=== PATIENT | male | born 2005 ===

== ENCOUNTER 2024-01-29 18:27 | Emergency (ER) | payer OTHER ==
[~2024-01-29] VITALS: Ht 172.7 cm; Wt 82.0 kg
[2024-01-29 18:43] VITALS: BP 137/98
[2024-01-29] MEDS ORDERED: ZOLOFT50 MG PO (18:45)
[2024-01-29] MEDS ORDERED: GUANFACINE2 MG PO (18:46)
[2024-01-29] MEDS ORDERED: ABILIFY10 MG PO (18:46)
[2024-01-29] MEDS ORDERED: OMEPRAZOLE20 MG PO (18:47)
[2024-01-29] MEDS ORDERED: IBUPROFEN600 MG PO (18:49)
[2024-01-29] MEDS ORDERED: MAALOX ADV1 CHW PO (18:50)
[2024-01-29] MEDS ORDERED: SODIUM CHLORIDE 0.9% 1,000 ML IV ONE (18:50)
[2024-01-29 19:00] VITALS: BP 131/97
[2024-01-29 19:07] LABS: BASO% 0.2 % (0-3); EOS% 0.3 % (0-8); HEMATOCRIT 48.6 % (39.0-50.0); IMMATURE GRANULOCYTES 0.1 % (0.0-5.0); LYMPH% 22.3 % (15-41); MEAN CELL VOLUME 88.5 fL CALC (80.0-100.0); NEUT# 6.06 thou/uL (1.82-7.42); NEUT% 70.1 % (42-76); RED BLOOD COUNT 5.49 mill/uL (4.70-6.10); RED CELL DISTRI WIDTH 11.9 % (11.5-15.5)
[2024-01-29] MEDS ORDERED: KETOROLAC TROMETHAMINE 30 MG/ML SDV IV ONE (19:15)
[2024-01-29] MEDS ORDERED: PROMETHAZINE HCL 25 MG/ML AMP IV ONE (19:15)
[2024-01-29 19:20] LABS: ALBUMIN 5.3 g/dL (3.2-5.0); BILIRUBIN, TOTAL 0.8 mg/dL (0.2-1.3); POTASSIUM 4.7 mmol/l (3.5-5.1); TOTAL PROTEIN 8.6 g/dL (6.3-8.2)
[2024-01-29 19:23] LABS: URINE BILIRUBIN - DIPSTICK Negative (NEGATIVE); URINE BLOOD DIPSTICK Negative (NEGATIVE); URINE COLOR Yellow; URINE GLUCOSE - DIPSTICK Negative (NEGATIVE); URINE KETONE Trace mg/dL (NEGATIVE); URINE LEUK ESTERASE Negative (NEGATIVE); URINE NITRITE - DIPSTICK Negative (Negative); URINE PH 6.5 (4.5-8.0); URINE PROTEIN - DIPSTICK Negative (NEG-TRACE); URINE SPECIFIC GRAVITY 1.015; URINE UROBILINOGEN - DIPSTICK 0.2 E.U./dL (0.2)
[2024-01-29 19:30] VITALS: BP 122/85
[2024-01-29 22:21] VITALS: BP 122/85
== END 2024-01-29 22:25 | DRG 392 ==
LOC: ED 18:27
PROVIDERS: Family Medicine
DX: R10.31 Right lower quadrant pain (principal); R11.2 Nausea with vomiting, unspecified; F17.210 Nicotine dependence, cigarettes, uncomplicated
CPT/HCPCS: Q9967